=== PATIENT | male | born 1980 | race Two or more races ===

== ENCOUNTER 2021-03-29 18:42 | Emergency (ER) | payer OTHER ==
[~2021-03-29] VITALS: Ht 177.8 cm; Wt 71.0 kg
--- NOTE | 2021-03-29 19:12 | PHYS DOC ---
Adult General HPI HPI Patient is a 41-year-old male who presents with dental pain. States he has a bad left lower molar and was told by his dentist he needs a root canal but cannot get in for the next month to have this. States he is having pain in the area, 6 out of 10, sharp in nature and has tried some ibuprofen at home earlier in the day with minimal relief. States he had not tried anything else. Denies any fevers, pain or trouble swallowing, nausea, vomiting. Review of Systems Review of Systems Review of systems otherwise unremarkable except noted in HPI Physical Exam Physical Exam Constitutional: Well developed, well nourished, no acute distress, non-toxic appearance. [] HENT: Normocephalic, atraumatic, bilateral external ears normal, oropharynx moist, no oral exudates, bottom left second to last molar with large dental carry, nose normal. [] Eyes:conjunctiva normal, no discharge. [] Neck: Normal range of motion, no tenderness, supple, no stridor. [] Neurologic: Alert and oriented X 3, normal motor function, normal sensory function, no focal deficits noted. [] Psychologic: Affect normal, judgement normal, mood normal. [] EKG EKG [] Radiology/Procedures Radiology/Procedures [] Heart Score C/O Chest Pain: No Risk Factors: Risk Factors: DM, Current or recent (<one month) smoker, HTN, HLP, family history of CAD, obesity. Risk Scores: Risk Factors: DM, Current or recent (<one month) smoker, HTN, HLP, family history of CAD, obesity. Course & Med Decision Making Course & Med Decision Making Patient is a 41-year-old male who presents with dental pain Vital signs not concerning. Physical exam noted above. Given oral pain medicine in the emergency department. Started on amoxicillin. Discussed findings with patient. Given contact information for local dentists, free clinics in the emergency dentist. Advised to call all this evening and leave messages as to try to get in tomorrow for reevaluation. Gave return precautions to the ED. Patient grateful, verbalized understanding and agreed with plan of discharge. [] Dragon Disclaimer Dragon Disclaimer This electronic medical record was generated, in whole or in part, using a voice recognition dictation system. Departure Departure: Impression: Primary Impression: Pain, dental Disposition: HOME / SELF CARE / HOMELESS Condition: GOOD Referrals: PCP,NO (PCP) SHANNON JOSHI MD Patient Instructions: Dental Caries Additional Instructions: Thank you for coming into the emergency department tonight and allowing us to take care of you. Please read all the attached information very carefully. You can use Tylenol, ibuprofen, Benadryl and Orajel as discussed. You are given contact information for local dentists, free clinics in the emergency dentist. Please call tonight and leave messages for these as to try to get in in the morning for reevaluation. Please come back to the emergency department with new or concerning symptoms as discussed. ZOILA CHRISTIANSON MD Mar 29, 2021 19:12
[2021-03-29] MEDS ORDERED: ACETAMINOPHEN 500 MG TABLET PO ONE (19:45)
[2021-03-29] MEDS ORDERED: oxyCODONE IR 5 MG TABLET PO PRN (19:45)
[2021-03-29] MEDS ORDERED: IBUPROFEN 600 MG TABLET. PO ONE (19:45)
[2021-03-29] MEDS ORDERED: AMOXICILLIN 250 MG CAPSULE PO ONE (19:45)
[2021-03-29] MEDS ORDERED: AMOX500C PO (20:09)
[2021-03-29 20:10] VITALS: BP 141/83
== END 2021-03-29 20:10 | disposition home or self-care (01) ==
LOC: ER 18:42
DX: K08.89 Other specified disorders of teeth and supporting structures (principal)
CPT/HCPCS: 99284